=== PATIENT | female | born 1935 | race Caucasian/White ===

== ENCOUNTER 2019-08-19 03:54 | Inpatient (IN) | payer BC ==
[2019-08-19] VITALS (8 sets, daily range): BP systolic 84–157; BP diastolic 41–84
[~2019-08-19] VITALS: Ht 172.7 cm; Wt 80.6 kg
[2019-08-19] MEDS ORDERED: CAL-GEST200 MG PO (04:06)
[2019-08-19] MEDS ORDERED: FLONASE 0.05%50 MCG NASAL (04:07)
[2019-08-19] MEDS ORDERED: CERTAVITE SR-A1 EACH PO (04:07)
[2019-08-19] MEDS ORDERED: NEURONTIN100 MG PO (04:07)
[2019-08-19] MEDS ORDERED: CALCIUM500 MG PO (04:07)
[2019-08-19] MEDS ORDERED: HYDROCHLOROTHIA25 M2 PO (04:07)
[2019-08-19] MEDS ORDERED: VITAMIN B-121000 MC2 PO (04:08)
[2019-08-19] MEDS ORDERED: ZANAFLEX4 M1 PO (04:08)
[2019-08-19] MEDS ORDERED: LORATIDINE 10 M10 M1 PO (04:08)
[2019-08-19] MEDS ORDERED: MELOXICAM15 MG PO (04:08)
[2019-08-19] MEDS ORDERED: VITAMIN D310 MC2 PO (04:09)
[2019-08-19] MEDS ORDERED: FIBER SELECT G1 EACH PO (04:09)
[2019-08-19] MEDS ORDERED: FLEET ENEMA133 ML RECTAL (04:10)
[2019-08-19] MEDS ORDERED: ULTRAM 50MG TAB50 MG PO (04:10)
[2019-08-19] MEDS ORDERED: BIOFREEZE118 ML TOP (04:10)
[2019-08-19] MEDS ORDERED: [UNRECOGNIZED DRUG - OTHER] PO (04:10)
[2019-08-19 06:11] LABS: ABSOLUTE EOSINOPHILS 0.1 thou/uL (0.0-0.7); ABSOLUTE LYMPHOCYTES 0.9 thou/uL (0.8-5.3); ABSOLUTE MONOCYTES 0.5 thou/uL (0.0-1.2); ABSOLUTE NEUTROPHILS 5.6 thou/uL (1.6-8.1); BASOPHILS 0.5 %; EOSINOPHILS 1.3 %; HEMOGLOBIN 12.6 gm/dL (12.0-15.0); LYMPHOCYTES 12.7 %; MCH 32.3 pg (26.0-34.0); MCV 92.2 fL (80.0-100.0); MONOCYTES 7.5 %; MPV 9.1 fl. (7.2-11.1); NUCLEATED RBCS 0 /100WBC; PLATELET COUNT* 165 thou/uL (150-400); RBC 3.91 mil/uL (4.20-5.00); RDW-CV 13.4 % (10.5-14.5); WBC 7.2 thou/uL (4.0-11.0)
[2019-08-19 06:17] LABS: CALCIUM 9.2 mg/dL (8.5-10.1); CREATININE 1.2 mg/dL (0.6-1.3); POTASSIUM 3.8 mmol/L (3.5-5.1)
[2019-08-19 06:20] LABS: PROTIME 10.4 Seconds (9.20-11.50)
[2019-08-19 07:27] LABS: URINE BILIRUBIN NEGATIVE (Negative); URINE BLOOD NEGATIVE (Negative); URINE CLARITY CLEAR; URINE COLOR YELLOW; URINE GLUCOSE-RANDOM NEGATIVE (Negative); URINE KETONES NEGATIVE (Negative); URINE LEUKOCYTES-REFLEX NEGATIVE (Negative); URINE NITRITE-REFLEX NEGATIVE (Negative); URINE PROTEIN NEGATIVE (Negative); URINE UROBILINOGEN 0.2 E.U./dl (0.2-1.0)
--- NOTE | 2019-08-19 11:00 | NUR ---
PATIENT ARRIVED FROM ER THIS AM. PATIENT SETTLED TO ROOM AND HISTORY AND ASSESSMENT COMPLETED AND DOCUMENTED. PATIENT ALERT AND ORIENTED WITH FORGETULNESS. PATIENT HAS COMPLAINTS OF PAIN TO RIGHT SHOULDE AND HEAD. TRAMADOL GIVEN WITH HOME MEDICATION ORDERS. PATIENT IS UP WITH MOD-MAX ASSIST OF 1-2 WITH GAIT BELT AND WALKER FOR TRANSFERS.
--- NOTE | 2019-08-19 14:30 | NUR ---
PATIENT WAS HELPED TO COMMODE TO URINATE WITH ASSIST OF 2 WITH GAIT BELT AND WALKER. ONCE PATIENT TO COMMODE SHE COMPLAINED OF FEELING DIZZY. PATIENT THEN LOST CONSCIOUSNESS AND WENT LIMP. PATIENT HAD PULSE BUT WAS NOT RESPONSIVE. RAPID RESPONSE CALLED. PATIENT QUICKLY REGAINED CONSCIOUSNESS BUT WOULD NOT OPEN EYES. PATIENT THEN PROCEDED TO VOMIT. VITAL SIGNS TAKEN AND CHARTED, THEY WERE WITHIN NORMAL LIMITS. PATIENT MOVED BACK TO BED. EKG PERFORMED. DR FOREMAN NOTIFIED AND ORDERS FOR NS BOLUS, CT SCAN AND TRANFER TO TELEMETRY UNIT, FLUIDS STARTED AND ZOFRAN GIVEN. PATIENT TAKEN BY BED TO CT. REPORT GIVEN TO MARIAELENA MANDUJANO.
--- NOTE | 2019-08-19 15:40 | NUR ---
pt transferred from [facility]. report received from the nurse. pt is aox3. forgetful .on 4 l nc. tracing sr on engine monitor. o2 saturation 98%. head of bed kept elevated at 90 degree to prevent aspiration since pt is still nauseous. pt had one episode of vomitting yellow colored. scant amount. head of bed kept elevated. campazine given as ordered. iv fluid infusing wide open as ordered. call light at reach. will continue to monitor
--- NOTE | 2019-08-19 15:52 | NUR ---
normal saline bag hanged. picture of foreheard and right leg scars taken and placed in chart.
[2019-08-20 04:00] VITALS: BP 102/46
[2019-08-20 08:00] VITALS: BP 121/61
[2019-08-20 11:14] LABS: ABSOLUTE EOSINOPHILS 0.1 thou/uL (0.0-0.7); ABSOLUTE LYMPHOCYTES 0.9 thou/uL (0.8-5.3); ABSOLUTE MONOCYTES 0.5 thou/uL (0.0-1.2); ABSOLUTE NEUTROPHILS 3.9 thou/uL (1.6-8.1); BASOPHILS 0.6 %; EOSINOPHILS 2.3 %; HEMATOCRIT 31.5 % (37.0-47.0); HEMOGLOBIN 10.9 gm/dL (12.0-15.0); LYMPHOCYTES 17.4 %; MCH 32.5 pg (26.0-34.0); MCHC 34.7 g/dL (28.0-37.0); MCV 93.7 fL (80.0-100.0); MONOCYTES 8.4 %; MPV 9.3 fl. (7.2-11.1); NUCLEATED RBCS 0 /100WBC; PLATELET COUNT* 137 thou/uL (150-400); POLYS 71.3 %; RBC 3.36 mil/uL (4.20-5.00); RDW-CV 13.6 % (10.5-14.5); WBC 5.4 thou/uL (4.0-11.0)
[2019-08-20 11:33] LABS: ALBUMIN 3.2 g/dL (3.4-5.0); CREATININE 1.3 mg/dL (0.6-1.3); POTASSIUM 3.9 mmol/L (3.5-5.1); TOTAL BILIRUBIN 0.5 mg/dL (<0.1-1.0); TOTAL PROTEIN 6.1 g/dL (6.4-8.2)
[2019-08-20 12:00] VITALS: BP 116/61
[2019-08-20 16:00] VITALS: BP 123/68
--- NOTE | 2019-08-20 17:51 | NUR ---
ASSUMED PT CARE. PT IS AOX4 FORGETFUL. ON 3L NC. TRACING SR ON PARK AIDE. Q2TURN. IV FLUID, IV ANTIBIOTICS HANGED ORDERED. JACOBO CATHETER IN PLACE DUE TO PT'S RETENTION. MID-FORHEAD SCAR IN LOOKING PINK AND PURPLE IN COLOR. LARGE BRUISE ON LEFT SIDE OF FACE. NO DRAINAGE COMING OUT OF THE SCAR. PT TESTED FOR COVID 19. SPECIMEN SENT TO LAB. ENHANCED ISOLATION IN PLACE. PT HAS GOOD APPETITE. DENIES PAIN. CALL LIGHT AT REACH. FALL PRECAUTION IN PLACE. WILL CONTINUE TO MONITOR PT
[2019-08-20 19:30] VITALS: BP 141/74
[2019-08-21] VITALS: BP 116/62
[2019-08-21 04:00] VITALS: BP 119/62
--- NOTE | 2019-08-21 06:22 | NUR ---
PT SLEPT MOST OF SHIFT. ASSESSMENT DOCUMENTED. MEDS GIVEN PER E-MAR. IV PATENT, FLUIDS INFUSING. PAIN MEDS GIVEN PER E-MAR. PT REPOSITIONED THROUGH SHIFT. ISOLATION MAINTAINED. WILL CONTINUE WITH PLAN OF CARE.
[2019-08-21 08:10] LABS: HEMATOCRIT 33.5 % (37.0-47.0); HEMOGLOBIN 11.7 gm/dL (12.0-15.0); MCH 32.4 pg (26.0-34.0); MCV 92.7 fL (80.0-100.0); MPV 9.2 fl. (7.2-11.1); RBC 3.61 mil/uL (4.20-5.00); RDW-CV 13.6 % (10.5-14.5); WBC 5.5 thou/uL (4.0-11.0)
[2019-08-21 08:30] LABS: ALBUMIN 3.3 g/dL (3.4-5.0); CALCIUM 8.6 mg/dL (8.5-10.1); CREATININE 1.1 mg/dL (0.6-1.3); POTASSIUM 3.8 mmol/L (3.5-5.1); TOTAL BILIRUBIN 0.8 mg/dL (<0.1-1.0); TOTAL PROTEIN 6.5 g/dL (6.4-8.2)
[2019-08-21 08:39] VITALS: BP 122/68
[2019-08-21 12:00] VITALS: BP 143/70
--- NOTE | 2019-08-21 14:47 | EKG ---
[place] [address] ELECTROCARDIOGRAM REPORT Name: BRENNAN DIAMOND Room: [address] ADM IN .R.#: [id number] Admission: 08/20/19 Attend Phys: Saira Gray, Discharge: Date of : 35 Date of Service: 08/19/19 1419 Report #: [id number] THIS REPORT FOR: //name// [facility] Test Date: 2019-08-19 Test Time: 14:19:30 Pat Name: BRENNAN DIAMOND Department: Room: [address] Gender: F Enterprise Resource Analyst: MICHAEL : 1935 Requested By: Saira Gray Order Number: [id number] Mariam MD: Silver Gross Measurements Intervals [place] Rate: 83 P: 26 MS: 186 QRS: 10 QRSD: 98 T: 7 QT: 391 QTc: 460 Interpretive Statements Sinus rhythm Left ventricular hypertrophy No previous ECG available for comparison Electronically Signed On 08-21-2019 14:46:12 CDT by Silver Gross [email or web address] <ELECTRONICALLY SIGNED> By: Silver Gross MD, [facility] 08/21/19 1446 1419 141 Silver Gross MD, FACC /EPI
[2019-08-21 16:00] VITALS: BP 142/74
--- NOTE | 2019-08-21 16:54 | NUR ---
WOUND NURSE: PER STAFF NURSE CARING FOR PATIENT PATIENT WITH INTACT SUTURES IN A SCALP LACERATION. SHE REPORTS IT IS STABLE NOT DRAINING AND OPEN TO AIR AND NOT COMPLICATED AT THIS TIME. WOUND NURSE CONSULT CANCELLED A RESULT.
--- NOTE | 2019-08-21 18:07 | NUR ---
PT GIVEN ONE DOSE OF PRN PAIN MEDICATION TODAY. C/O PAIN IN NECK, RIGHT ARM, SHOULDER AND BACK. PT WAS TURNED EVERY 2 HOURS. VSS. PT ON 2L NC. ASSESSMENT CHARTED. JACOBO INTACT AND DRAINING. FLUIDS. SUTURES INTACT ON FOREHEAD.
[2019-08-21 20:00] VITALS: BP 116/56
[2019-08-22] VITALS: BP 102/56
--- NOTE | 2019-08-22 03:49 | NUR ---
OK TO DISCONTINUE SPECIAL CONTACT PRECAUTONS D/T PATIENT BEING NEGATIVE FOR COVID-[address] VILLEDA VIA TELEPHONE ORDER.
[2019-08-22 04:00] VITALS: BP 104/68
--- NOTE | 2019-08-22 06:42 | NUR ---
RECEIVED PATIENT FROM NIGHT TIME TELEMETRY CHARGE NURSE MYNOR AT APPROXMATELY 1536. I AGREE WITH PRIOR NURSES ASSESSMENT. PATIENT SLEEPING. NO C/O PAIN. VSS ON 2L 02 VIA NASAL CANNULA. WOUND TO FOREHEAD ARE BIENVENIDO AND SUTURES IN PLACE AND IT IS WELL APPROXIMATED. NO DRAINAGE NOTED. JACOBO TO DEPENDENT DRAINAGE WITH MANE COLORED URINE OUTPUT. PATIENT NEGATIVE FOR COVID-19. NOTIFIED OF NEGATIVE COVID-19 RESULTS. PATIENT REMOVED FROM ISOLATION. FALL PRECAUTIONS IN PLACE AND HOURLY ROUNDS MADE. WILL CONTINUE WITH PLAN OF CARE AND NURSING TO MONITOR.
--- NOTE | 2019-08-22 07:15 | NUR ---
CHANGE OF SHIFT BEDSIDE REPORT GIVEN PATIENT SEEN AT BEDSIDE, IN BED ASLEEP ASSUMED PATIENT CARE
[2019-08-22 08:00] VITALS: BP 125/63
[2019-08-22 12:07] VITALS: BP 140/76
[2019-08-22 16:15] VITALS: BP 109/59
--- NOTE | 2019-08-22 17:00 | NUR ---
PT.SLEEPING. COVID TEST CAME BACK NEG. CM SPOKE WITH DAUGHTER,BRANDI,ON PHONE. SHE UNDERSTOOD MOTHER COULD NOT RETURN TO [facility] WHERE SHE LIVES SINCE SHE IS NOT DOING WELL ENOUGH IN THERAPY. DISCUSSED SNFS AND WHAT INSURANCE WOULD PAY. SHE WAS AGREEABLE TO ANYWHERE IN [place] OR [place]. CM WILL MAKE REFERRALS IN AM.
[2019-08-22 20:10] VITALS: BP 126/70
[2019-08-23] VITALS: BP 101/59
[2019-08-23 04:00] VITALS: BP 126/72
[2019-08-23 08:00] VITALS: BP 111/60
[2019-08-23 12:08] VITALS: BP 112/66
[2019-08-23 16:42] VITALS: BP 153/84
[2019-08-23 21:53] VITALS: BP 128/75
[2019-08-24] VITALS: BP 105/57
[2019-08-24 08:00] VITALS: BP 124/75
--- NOTE | 2019-08-24 09:54 | NUR ---
SENT REFERRALS YESTERDAY TO [facility]. LEFT MESSAGES AT [facility] 2 TIMES WITH NO CALL BACK UNTIL END OF DAY. THEY DO NOT HAVE BED AVAILABILITY. [facility] DOES NOT HAVE BED AVAILABILITY PER ELINA THIS AM.
--- NOTE | 2019-08-24 12:13 | NUR ---
FAXED REFERRAL TO [facility].
[2019-08-24 12:39] VITALS: BP 132/73
--- NOTE | 2019-08-24 16:00 | NUR ---
[facility]/NICOLE [phone] AND [phone] BOTH SAID THEY MAY HAVE A BED OPEN TOMORROW. CM TO CALL IN AM AND THEY WILL START AUTHORIZATION IF THEY DO HAVE A BED. ALSO FAXED REFERRAL TO [phone]
[2019-08-24 17:13] VITALS: BP 144/82
[2019-08-24 20:00] VITALS: BP 173/82
[2019-08-24 23:50] VITALS: BP 136/66
[2019-08-25 04:28] VITALS: BP 138/76
--- NOTE | 2019-08-25 05:11 | NUR ---
PT A&O, ON 2L BY [place]. MEDS GIVEN ORDERED. C/O PAIN, TYLENOL GIVEN PER PT REQUEST. PT SLEEPING THROUGH THE NIGHT. DONNELL IN PLACE, SR ON PETROLEUM ENGINEERING PROFESSOR. IVF INFUSING. HOURLY ROUNDINGS, TURNS COMPLETED. WILL CONTINUE TO MONITOR.
[2019-08-25 07:30] VITALS: BP 111/62
--- NOTE | 2019-08-25 09:30 | NUR ---
CM F/U W/THE FOLLOWING FACILITIES; [facility] - 0 BEDS & KARINA SANTANA WILL RUN AUTH TODAY AND F/U W/ CM. ARTIS Juan/ [facility] [phone], HAS BEEN NOTIFIED OF SNF UPDATE, HE CALLED THIS AM ASKING FOR PT STATUS. CM TO CONT TO FOLLOW.
[2019-08-25 13:27] VITALS: BP 159/75
[2019-08-25] MEDS ORDERED: TRAMADOL 50 MG50 MG PO (15:36)
[2019-08-25] MEDS ORDERED: THERAGRAN-M PR1 EAC1 PO (16:15)
[2019-08-25] MEDS ORDERED: VOLTAREN GEL 1100 G1 TOP (16:16)
[2019-08-25] MEDS ORDERED: TYLENOL325 MG PO (16:16)
[2019-08-25] MEDS ORDERED: LIDODERM1 EACH TOP (16:17)
[2019-08-25 16:38] VITALS: BP 159/75
--- NOTE | 2019-08-25 18:04 | NUR ---
RECEIVED REPORT FROM NOC NURSE RN. ASSUMED CARE OF PT AROUND 0715. PT A&O X4. FORGETFUL AT TIMES. AM ASSESSMENT AND VITALS COMPLETED CHARTED. MEDS PER EMAR. OUTREACH LIBRARIAN IN PLACE. PT ABLE TO WORK WITH THERAPIES, UP TO BEDSIDE CHAIR WITH ASSISTANCE. DONNELL [place]. DISCAHRGE TO SNF ORDERS RECEIVED. DISCHARGE COMPLETED DOCUMENTED. DISCHARGE PACKET PREPARED AND GIVEN TO TRANSPORTER. SCRIPT FOR TRAMADOL IN PACKET. ALL BELONGINGS GATHERED AND SENT WITH PT. IV AND OUTREACH LIBRARIAN REMOVED. DC PICS TAKEN. PT LEFT UNIT IN WC WITH TRANSPORTER. PT LEFT HOSPITAL IN CAR WITH TRANSPORTER. REPORT CALLED TO [facility]IL[facility], TALKED TO CHRISSIE.
--- NOTE | 2019-08-29 08:58 | NUR ---
MIRTHA let Elyssa with [facility] know that Pt discharged to [facility]. Pt resides at [facility].
== END 2019-08-25 17:28 | DRG 579 ==
LOC: M.ERS 03:54 → M.TBA-ER 07:44 → M.2W 07:44 → M.TBA-ER 07:44 → M.2W 07:44 → M.3W 09:57 → M.2W 14:47
PROVIDERS: Emergency Medicine; ADMIT Internal Medicine; ATTEND Internal Medicine
PROC: 0KQ10ZZ Repair Facial Muscle, Open Approach (ICD-10-PCS; principal; 2019-08-20)
DX: S01.01XA Laceration without foreign body of scalp, initial encounter (principal); J96.01 Acute respiratory failure with hypoxia; S01.81XA Laceration without foreign body of other part of head, initial encounter; G62.9 Polyneuropathy, unspecified; S40.012A Contusion of left shoulder, initial encounter; M19.90 Unspecified osteoarthritis, unspecified site; S81.811A Laceration without foreign body, right lower leg, initial encounter; E07.9 Disorder of thyroid, unspecified; R91.1 Solitary pulmonary nodule; E04.9 Nontoxic goiter, unspecified; M81.0 Age-related osteoporosis without current pathological fracture; Z96.642 Presence of left artificial hip joint; Z88.8 Allergy status to other drugs, medicaments and biological substances; W06.XXXA Fall from bed, initial encounter; Y93.89 Activity, other specified; Y92.098 Other place in other non-institutional residence as the place of occurrence of the external cause; Y99.8 Other external cause status; Z20.828 Contact with and (suspected) exposure to other viral communicable diseases